=== PATIENT | female | born 1965 | race Caucasian/White ===

== ENCOUNTER 2023-10-15 12:35 | Inpatient (IN) | payer OTHER, SELFPAY ==
[2023-10-15] VITALS (17 sets, daily range): BP systolic 83–126; BP diastolic 59–89
--- NOTE | 2023-10-15 09:59 | ED.GENMED ---
History of Present Illness
General
Chief Complaint: Unresponsive
Source: ambulance crew
Exam Limitations: none
Time Seen by Provider: 10/15/23 09:55
Nursing documentation reviewed up to this point in time: agreed with
History of Present Illness
History of Present Illness:
58-year-old female presents emergency department due to altered mental status. Her neighbor checked on her, and was worried that she was . They began compressions on her, EMS arrived to find her responsive to pain. Vital signs were stable,
they established an IV and transported patient. Patient responds to her name, and is moving all extremities.
Past History
Past History
ED Past Medical History: GERD, Renal failure and Other (Irritable bowel)
ED Past Surgical History: Other (Gastric sleeve)
Review of Systems
Review of Systems
Allergies reviewed?: Yes
All Other Systems: Not applicable
Phy Exam
Physical Exam
Physical Exam:
Physical Exam
General: Arousable
Neck: supple. no meningeal signs. normal posterior pharynx
Heart: s1/s2 regular rate and rhythm, no murmur. equal radial
pulses.
HEENT: Pupils equal round reactive to light, EOMI
Lungs: no acute respiratory distress. clear bilaterally
Abdomen: normal bowel sounds. not tender. no CVAT
Neuro: Drowsy, but arousable. no focal neurological deficits cranial nerves II through XII intact
Skin: no rash
Psychiatric: Not cooperative, drowsy
Extremities: no edema. no calf tenderness. negative homans. good distal pulses
Course
Orders/Labs/Results
Orders:
Orders
10/15/23 09:56
EKG- Treatment ONCE
10/15/23 09:57
Electrocardiogram (*1) Urgent
Reason for Study: Fatigue / Weakness
CT Head W/o Iv Contrast Urgent
Comment:
Reason For Exam: altered mental status
10/15/23 09:58
Cardiac Monitoring- Treatment ONCE
Straight cath- Treatment ONCE
10/15/23 10:00
Lactic Acid Q4H
Comment: CANCEL 2nd LACTIC ACID IF 1st LACTIC ACID IS LESS THAN 2
10/15/23 10:10
Alcohol Urgent
Complete Blood Count/With Diff Urgent
Comprehensive Metabolic Panel Urgent
Lactic Acid Q4H
Comment: CANCEL 2nd LACTIC ACID IF 1st LACTIC ACID IS LESS THAN 2
Salicylate Urgent
Troponin I Urgent
Tylenol [Acetaminophen] Urgent
Dextrose 50%-Water [Dextrose 50% Syringe] 25 grams .ROUTE .STK-MED ONE
Dextrose 50%-Water [Dextrose 50% Syringe] 25 grams IV NOW STA
10/15/23 10:15
0.9% Sodium Chloride 1000 ml [Nss] 1,000 ml IV BOLUS
10/15/23 10:17
Urine Drug Abuse Screen Urgent
Date Specimen was Collected: 10/15/23
Time Specimen was Collected: 10:14
10/15/23 10:21
Urinalysis Reflex To Culture Urgent
Date Specimen was Collected: 10/15/23
Time Specimen was Collected: 10:20
10/15/23 10:22
Urine Drug Abuse Screen Urgent
Date Specimen was Collected: 10/15/23
Time Specimen was Collected: 10:20
10/15/23 10:41
Bedside Glucose- Treatment ONCE
Abnormal Lab Results
10/15/23 10/15/23
10:09 10:10
WBC 4.3 L 10^3/uL
(4.8-10.8)
MCH 32.1 H pg
(27.0-31.0)
BUN 22 H mg/dl
(7-17)
AST 37 H U/L
(14-36)
Salicylates < 1.0 L mg/dl
(2.0-20.0)
Acetaminophen < 10 L ug/ml
(10-30)
POC Glucose 59 L mg/dl
(70-99)
10/15/23 10:10
10/15/23 10:10
Vital Signs
Initial and Last Documented VS:
Initial Vital Signs
Temp Pulse Resp BP Pulse Ox
97.0 F 91 18 126/86 94
10/15/23 10:04 10/15/23 10:04 10/15/23 10:04 10/15/23 10:04 10/15/23 10:04
Last Documented Vital Signs
Temp Pulse Resp BP Pulse Ox
97.0 F 82 13 96/67 98
10/15/23 10:04 10/15/23 10:23 10/15/23 10:23 10/15/23 10:23 10/15/23 10:23
MDM/Problems Addressed
Differential Diagnosis Includes:
CVA, intracranial hemorrhage, drug overdose, hypoglycemic episode
MDM/Problems Addressed:
58-year-old female with altered mental status, unclear etiology. Stable airway. Admit to hospitalist, ICU for further evaluation.
*Radiology
Radiology exam reviewed: preliminary read by ED provider (CT head no acute findings)
*Pulse Oximetry
Patient hypoxic: no
*EKG
Interpreted by ED Provider?: Yes
EKG Intrepretation Date: 10/15/23
EKG Intrepretation Time: 10:09
Interpretation: normal
Comparison EKG: no changes
Heart Rate: 84
Rate: normal
Rhythm: sinus
Kennedy: normal axis
Interval: normal interval
QRS Pattern: normal QRS
Ischemia: no ischemia
*Auto Mechanics Teacher Interpretation
Rate: normal
Interpretation: normal
Heart Rate: 82
Rhythm: sinus
*Critical Care Note
Total Time (30-74mins, 75-104mins- exclusive of procedures): 30
comment:
Critical care statement: A total of 30 minutes of critical care time was provided for this patient. This includes management of unstable vital signs, evaluation of the patient at bedside, reviewing the patient's pertinent medical records, discussion
with consultants, review of old EKGs and review of pertinent medical records. This time with separate from time utilized to perform the aforementioned documented procedures
Patient Management
Social determinants of health affecting care: Living situation
Discussion with other providers: Hospitalist and Windows System Admin (Neurology)
Escalation/DeEscalation of care consider admission/obs:
Admit indicated
ED Attending Note
-
Portions of this chart may have been created with voice recognition software.� Occasional wrong word or��sound alike� substitutions may have occurred due to the inherent limitations of voice recognition software.
Discharge Plan
Departure
Patient Disposition: Admit
Date of Disposition: 10/15/23
Time of Disposition: 10:45
Admit to: ICU
Presentation/result/management discussed w/ accepting MD/DO: Hospitalist
Patient with high blood pressure during this ER visit?: No
Condition: Serious
Discharge Problem:
Acute alteration in mental status
Prescriptions:
No Action
multivitamin with iron Tablet
1 tab PO DAILY
rosuvastatin [Crestor] 10 mg Tablet
10 mg PO QPM
calcium citrate-vitamin D3 [Citracal plus D] 315 mg-5 mcg (200 unit) Tablet
2 tab PO DAILY
Gemtesa 75 mg Tablet
75 mg PO DAILY
Wegovy 2.4 mg/0.75 mL Pen Injector
2.4 mg SC TH
gabapentin 600 mg Tablet
600 mg PO HS
aspirin [Aspir-81] 81 mg Tablet,Delayed Release (Dr/Ec)
81 mg PO QPM
acetaminophen 500 mg Tablet
1,000 mg PO Q6H PRN (Reason: pain)
amitriptyline 25 mg Tablet
25 mg PO HS
ibuprofen 200 mg Tablet
400 - 600 mg PO Q6H PRN (Reason: Pain)
bisacodyl [Dulcolax (bisacodyl)] 5 mg Tablet,Delayed Release (Dr/Ec)
5 - 20 mg PO PRN PRN (Reason: constipation)
polyethylene glycol 3350 [Miralax] 17 gram/dose Powder
4 g PO PRN PRN (Reason: Constipation)
melatonin 5 mg Tablet
5 mg PO HS
Fish Oil 1,280 MG capsule
1,280 mg PO DAILY
diazepam 10 MG suppository
10 mg ME PRN PRN (Reason: constipation)
Referrals:
Miracle Betts DO [Family Provider] -
Interventions
Interventions:
*Risk Screen - Suicide Last Done: 10/15/23 09:58
*General Assessment Last Done: 10/15/23 09:58
*Neglect/Abuse Screening Last Done: 10/15/23 09:58
*ED COVID-19 Vaccine History Last Done: 10/15/23 09:58
ED- Neurological Assessment Last Done: 10/15/23 09:58
Discharge Date and Time
Print Language: INDONESIAN
[2023-10-15] MEDS: DEXTROSE 50% SYRINGE 25 GRAMS IV (10:13)
[2023-10-15 10:15] LABS: Glucose - Point of Care 59 mg/dl (70-99)
[2023-10-15] MEDS: NSS 1000 IV ×2 (10:19→12:41)
[2023-10-15 10:27] LABS: % Basophils 0.2 % (0-2); % Eosinophils 2.8 % (0-6); % Lymphocytes 28.4 % (20.5-51.1); % Monocytes 7.9 % (1.7-9.3); % Neutrophils 60.7 % (42.2-75.2); Absolute Eosinophils 0.1 10^3/uL (0-0.7); Absolute Lymphocytes 1.2 10^3/uL (1.2-3.4); Absolute Monocytes 0.3 10^3/uL (0.1-0.6); Absolute Neutrophils 2.6 10^3/uL (1.4-6.5); Hematocrit 44.7 % (37.0-47.0); Hemoglobin 15.2 g/dL (12.0-16.0); Mean Corpuscular Hgb 32.1 pg (27.0-31.0); Mean Corpuscular Volume 94.3 fL (81.0-99.0); Mean Platelet Volume 9.7 fL (7.4-10.4); Nucleated Red Blood Cells % 0 %; Platelet Count 167 10^3/uL (130-400); Red Blood Cell Count 4.74 10^6/uL (4.20-5.40); Red Cell Dist. Width 11.9 % (11.5-14.5); White Blood Cell Count 4.3 10^3/uL (4.8-10.8)
[2023-10-15 10:36] LABS: Lactic Acid 0.8 mmol/L (0.7-2.0)
[2023-10-15 10:37] LABS: ALT (SGPT) 35 U/L (0-35); AST (SGOT) 37 U/L (14-36); Acetaminophen < 10 ug/ml (10-30); Albumin 4.4 g/dl (3.5-5.0); Alkaline Phosphatase 58 U/L (38-126); Blood Urea Nitrogen 22 mg/dl (7-17); Calcium 9.5 mg/dl (8.4-10.2); Carbon Dioxide 30 mmol/L (22-30); Chloride 101 mmol/L (98-107); Glucose 82 mg/dl (70-99); Potassium 4.8 mmol/L (3.5-5.1); Salicylate < 1.0 mg/dl (2.0-20.0); Sodium 141 mmol/L (135-145); Total Bilirubin 0.6 mg/dl (0.2-1.3); Total Protein 6.5 g/dl (6.3-8.2); eGFR > 60.00
[2023-10-15 10:38] LABS: Alcohol None Detected
[2023-10-15 10:47] LABS: Glucose - Point of Care 134 mg/dl (70-99)
[2023-10-15 10:48] LABS: Troponin I < 0.012 ng/ml
[2023-10-15 10:54] LABS: Urine Albumin Negative (Neg - Trace); Urine Bilirubin Negative (Negative); Urine Character Clear (Clear); Urine Color Yellow; Urine Glucose Negative (Negative); Urine Ketone Negative (Negative); Urine Leukocyte Negative (Negative); Urine Nitrite Negative (Negative); Urine Occult Blood Negative (Negative); Urine Urobilinogen Negative (Neg - 1+)
[2023-10-15 11:21] LABS: Amphetamines Negative (Negative); Barbiturates Negative (Negative); Benzodiazepines Positive (Negative); Buprenorphine Negative (Negative); Cocaine Negative (Negative); Marijuana Negative (Negative); Methadone Negative (Negative); Methamphetamines Negative (Negative); Opiates Negative (Negative); Phencyclidine Negative (Negative)
[2023-10-15 11:22] LABS: Tricyclic Antidepressants Positive (Negative)
[2023-10-15 12:09] LABS: Fentanyl, Urine Negative (Negative)
--- NOTE | 2023-10-15 13:52 | W.PN.UPDATE ---
Update Note
Progress Note Update
I personally performed a history and physical exam of the patient and discussed management with the resident. I reviewed the resident's note and agree with the documented findings and plan of care HPI/CC.
58F with PMH of obesity s/p gastric bypass, depression/anxiety, hyperlipidemia, neuropathy, overactive bladder, H/o PE/DVT was brought into ER by EMS after patient found unresponsive at home. Patient spouse called patient did not get a response.
Neighbor checked on patient and found unresponsive. EMS reported patient glucose was 58. Patient was brought into ER and initial workup was negative including no major abnormality on CBC/BMP/urine drug screen/CT head. During my visit patient
remains unresponsive and cannot open eye on painful stimuli. History gathered from patient spouse and daughter at bedside.
Per patient spouse there is social stress with patient mood issues. Patient has been depressed and has been at times fighting with family. Patient goes through episodes of binge drinking. No reported suicidal ideation or history of attempt.
Patient family is in touch with psychotherapist to help patient through the process.
Patient have history of gastric bypass and no reported complication. Takes Wejovy and no reported episodes of previous Hypoglycemia. Patient does not have history of any head trauma/seizures in the past. No history of alcohol withdrawal.
HEENT: bilateral equal pupil
NECK: Supple. No JVD.
RESPIRATORY: Lungs clear to auscultation.
CVS: S1, S2 normal. RRR. No murmur, rub or gallop.
ABDOMEN: Soft, No distension. BS+/normal.
EXTREMITIES: No peripheral cyanosis or edema.
ENTERER: obtunded, some opening eyes to painful stimuli
1. Unresponsive
Acute toxic metabolic encephalopathy
-found un-responsive at home.
-CT head negative for acute abnormality
-Urine drug screen positive for benzo/TCA, patient's home medications
-Alcohol/salicylate/tylenol negative as well
-Reported Hypoglycemia of ~ 55 by EMS staff and may explain encephalopathy, but surprisingly not improved with glucose normalization, nonetheless maintained on IV D5/LR. Patient can have further episode of hypoglycemia and continue checking for q6h
while unresponsive,
-History of alcohol use another potential differential of seizure/postictal state remains possibility. Neuro evaluation requested
-Check VBG to r./o Co2 narcosis
-Patient also reported history of depression. Asked family to bring in medication bottles to rule out any intentional overdose of prescription medication. Per spouse patient phone was showing cultures of gabapentin side effect.
-Monitor patient in IMU level.
2. Hypoglycemia
-Patient takes Wejovy every .
-Also history of alcohol use and poor oral intake likely contributing to ongoing Hypoglycemia
-Maintain on D5 LR
-With alcohol use history give 4 doses of IV thiamine
3. Depression/Anxiety
-Patient on Xanax 0.5 mg/d - PDMP reviewed
-Also on amitriptyline
4. HLD
-Hold PO statin
Overactive bladder
History of PE/DVT
DVT PPX - lovenox
Full code
Total time spent : 80 mins
I personally saw and examined the patient.
I have reviewed all diagnostic interpretations and treatment plans as written.
Time includes patient management by me, time spent at the patients bedside, time to review lab and imaging results, discussing patient care, documentation in the medical record, and time spent with the family or caregiver and discussing care plan
with RN/Consultants.
[2023-10-15 14:14] LABS: Glucose - Point of Care 47 mg/dl (70-99)
[2023-10-15] MEDS: DEXTROSE 50% SYRINGE 12.5 GRAMS IV (14:18)
[2023-10-15] MEDS: D5LR 1000 IV ×2 (14:25→23:29)
[2023-10-15 14:44] LABS: Glucose - Point of Care 100 mg/dl (70-99)
--- NOTE | 2023-10-15 14:45 | PTCARENOTE ---
[facility] SR on tele BP 98/70 100% on 2L NC- barely responsive- palpable bladder and tender- bladder scanned 1147, accu check 47- TT Dr. Ramirez- 1/2 amp D50 given and Sesay placed- Dr. Ramirez here -
IVF D5LR initiated at 100ml/hr.
Repeat accu check 100 will follow protocol.
Arousable now mumbling words, following some simple commands but unable to answer most questions .
[2023-10-15 15:22] LABS: Creatine Phosphokinase 58 U/L (30-135)
[2023-10-15 17:04] LABS: Glucose - Point of Care 75 mg/dl (70-99)
[2023-10-15 17:17] LABS: Venous Blood Gas B.E. 0.8 mmol/L (-4 to +4); Venous Blood Gas HCO3 28.9 mmol/L (22-27); Venous Blood Gas O2 Sat % 91.6 %; Venous Blood Gas pCO2 60 mmHg (35-48); Venous Blood Gas pH 7.29 (7.32-7.43); Venous Blood Gas pO2 64 mmHg (30-50)
[2023-10-15] MEDS: THIAMINE INJECTION 200 MG IV (17:38)
[2023-10-15] MEDS: LOVENOX 40 MG SC (17:38)
[2023-10-15 18:08] LABS: Free T4 0.91 ng/dl (0.78-2.19)
[2023-10-15 18:22] LABS: TSH 0.51 uIU/ml (0.47-4.68)
--- NOTE | 2023-10-15 19:41 | PTCARENOTE ---
Mostly sleeping, awoke briefly this pm and was upset that she cannot have a drink of something- mouth swabs provided then went right back to sleep. Spouse at bedside. Admission completed.
[2023-10-15 20:07] LABS: Glucose - Point of Care 71 mg/dl (70-99)
--- NOTE | 2023-10-15 20:36 | HPS.HSE ---
Family Physician
-
Family Physician: Miracle Betts
Chief Complaint
-
Altered Mental status
History of Present Illness
A 58 year old female with PMH of depression, hyperlipidemia, pulmonary embolism was brought to the ER by EMS after patient did not respond to the husbands calls/text and he then requested neighbor to check on patient. EMS was called and patient was
admitted into the ER. Her blood glucose level was 58 at the time EMS was evaluating her. Patient is unresponsive and cannot open eye on painful stimuli. Reported a previous episode of sudden altered mental status following an episode of pulmonary
embolism 10 years ago. No abnormalities seen on labs, CT head- shows no intracranial abnormalities, and toxicology screen is positive for benzos and tricyclic antidepressants but patient has a prescription for these to treat her depression.
states that when she goes into a depressive episode, she binge drinks then fights with the family and the last episode was 4 weeks ago. the last message on her phone was 'side effects of benzos'. No reported suicidal ideation or history of
attempt. pt has no history of alcohol withdraw, head trauma, hypoglycemic episodes, or seizures.
Patient have history of gastric bypass, hysterectomy, and surgery for tennis elbow of the right hand and no reported complication.
Medical History
Past Medical History
Past Medical History: Reports Hypercholesterolemia
Additional Past Medical History:
depression, pulmonary embolism, obesity
Past Surgical History: Reports Other (see note below)
Additional Past Surgical History:
gastric bypass, hystrectomy, and tennis elbow surgery on right arm
Social History
Unable to obtain full social history at this time due to: Patient Non-verbal
Family History
Family History: Not pertinent
Allergies / Home Medications
Allergies reflects when Allergies were last updated in [employer].
Home Medications with original date entered in [employer]
Allergy/Medication List:
Allergies
Allergy/AdvReac Type Severity Reaction Status Date / Time
Sulfa (Sulfonamide Allergy fever Verified 04/07/22 07:04
Antibiotics)
Home Medications
acetaminophen 500 mg tablet 1,000 mg PO Q6HPRN PRN mild pain 04/02/22
amitriptyline 25 mg tablet 25 mg PO HS depression/pain 04/02/22
aspirin 81 mg tablet,delayed release 81 mg PO QPM Blood Clot Prevention/Tx 04/02/22
bisacodyl 5 mg tablet,delayed release (Dulcolax (bisacodyl)) 5 - 15 mg PO DAILYPRN PRN constipation 04/02/22
calcium citrate 315 mg-vitamin D3 5 mcg (200 unit) tablet 2 tab PO DAILY Supplement 04/02/22
diazepam 20 mg VT DAILYPRN PRN pelvic floor spasms 04/02/22
melatonin 5 mg tablet 5 mg PO HS sleep 04/02/22
omega-3s 360 oj-fzx-gex-fish oil 1,200 mg-D3 1,000 unit capsule (Fish Oil-Vit D3) 1 cap PO DAILY Supplement 04/02/22
semaglutide (weight loss) 2.4 mg/0.75 mL subcutaneous pen injector (Wegovy) 2.4 mg SC TH weight loss 04/02/22
vibegron 75 mg tablet (Gemtesa) 75 mg PO DAILY Urinary Issue 04/02/22
alprazolam 0.5 mg tablet (Xanax) 0.5 mg PO DAILYPRN PRN anxiety 10/15/23
cyclobenzaprine 10 mg tablet 10 mg PO DAILYPRN PRN spasms 10/15/23
gabapentin 100 mg capsule 100 mg PO DAILY@1400 pain 10/15/23
gabapentin 100 mg capsule 200 mg PO DAILY pain 10/15/23
gabapentin 600 mg tablet 600 mg PO HS pain 10/15/23
rosuvastatin 10 mg tablet 10 mg PO DAILY High Cholesterol 10/15/23
therapeutic multivitamin 1 tab PO DAILY Supplement 10/15/23
If medication reconciliation has not been performed, why?: Unresponsive
Review of Systems
-
Unable to obtain full review of systems at this time due to: Patient Non-verbal
Physical Exam
Vital Signs
Vital Signs
Temp Pulse Resp BP Pulse Ox
98.2 F 77 13 95/64 100
10/15/23 19:42 10/15/23 18:00 10/15/23 18:00 10/15/23 18:00 10/15/23 18:00
Physical Exam
General: Well Developed and Well Nourished
Respiratory: Clear
Cardiac: S1/S2 and Regular Rhythm
GI: Soft and Non Distended
Musculoskeletal: No Clubbing, No Cyanosis and No Edema
Skin: Warm and Dry
Neuro: Other (Altered mental status)
Laboratory Results
-
10/15/23 10:10
10/15/23 10:10
Laboratory Results
Lactic Acid 0.8 mmol/L (0.7-2.0) 10/15/23 10:10
Total Bilirubin 0.6 mg/dl (0.2-1.3) 10/15/23 10:10
AST 37 U/L (14-36) H 10/15/23 10:10
ALT 35 U/L (0-35) 10/15/23 10:10
Alkaline Phosphatase 58 U/L (38-126) 10/15/23 10:10
Troponin I < 0.012 ng/ml 10/15/23 10:10
Data Reviewed
-
Lab Data: Labs Reviewed by me and Discussed with Physician
Impression/Plan
-
IMPRESSION:
PLAN:
1. Acute toxic encephalopathy:
- patient is unresponsive to verbal commands and painful stimuli.
- Reported hypoglycemia of 58 by ems ( 82 now) and administered D5/LR IV and make sure to monitor every q6h
-CT head (10/14) shows no intracranial abnormalities
-Neuro evaluation requested for possible seizures
-Check VBG to r./o Co2 narcosis
-Patient has a history of major depressive episodes so asked patients to bring in pill bottle to count how many pills she has been taking.
-Observe patient in the IMU level.
2. Hypoglycemia
-EMS team recorded a blood glucose level of 58 ( 82 now in the ED), so administer D5 IV and monitor every q6h
-This could be due to her heavy alcohol usage which could affect her liver causing it to stop releasing glucose
-Administer 4 doses of IV thiamine to help decrease the potential risk of Wernicke encephalopathy
3. Depression
-Patient on Xanax 0.5 mg/d - PDMP reviewed and amitriptyline
- A possible psych evaluation once patient is responsive
4. HLD
-Hold statins as they can exacerbate hypoglycemia
--- NOTE | 2023-10-15 20:43 | PTCARENOTE ---
Pt is awake, oriented at this time. Most recent blood glucose 71. On assessment, IV is noted to be infiltrated, fluids stopped, IVT notified. Pt denies symptoms of hypoglycemia at this time, but does request water and states that her mouth feels
dry. This RN provided mouth swabs and educated pt. This RN educated pt on need for new IV site to continue IVF as directed. Pt reminded to alert this RN with change in symptoms. Call jaramillo within reach and pt ringing appropriately at this time. Bed
alarm in place for patient safety.
[2023-10-15 21:53] LABS: Glucose - Point of Care 70 mg/dl (70-99)
--- NOTE | 2023-10-15 22:20 | PTCARENOTE ---
Pt very drowsy at this time. BP readings
--- NOTE | 2023-10-15 22:23 | PTCARENOTE ---
Pt very drowsy at this time, but arousable. BP readings under 90 systolic. FOREIGN STUDENT ADVISER TEACHER notified. IVF running through R wrist IV.
[2023-10-16] VITALS (13 sets, daily range): BP systolic 71–109; BP diastolic 41–68
[2023-10-16 00:19] LABS: Glucose - Point of Care 93 mg/dl (70-99)
[2023-10-16] MEDS: NSS 500 IV (02:43)
--- NOTE | 2023-10-16 03:04 | PTCARENOTE ---
BP remains low, now under 80 systolic. Pt repositioned, cuff replaced. 500ml bolus given per ICE CREAM DIPPER order. Pt woke up confused, attempted to get OOB. Pt states that she wants to get OOB to use bathroom. Pt educated that she has a guido catheter in
place and is ordered bedrest at this time. Pt does not verbalize understanding of teaching, but is agreeable to laying down in bed.
[2023-10-16 03:56] LABS: Glucose - Point of Care 76 mg/dl (70-99)
[2023-10-16] MEDS: THIAMINE INJECTION 200 MG IV (04:35)
[2023-10-16 05:12] LABS: Hematocrit 39.2 % (37.0-47.0); Hemoglobin 13.4 g/dL (12.0-16.0); Mean Corp Hgb Conc. 34.2 g/dL (33.0-37.0); Mean Corpuscular Hgb 31.7 pg (27.0-31.0); Mean Corpuscular Volume 92.7 fL (81.0-99.0); Platelet Count 190 10^3/uL (130-400); Red Blood Cell Count 4.23 10^6/uL (4.20-5.40); Red Cell Dist. Width 12.1 % (11.5-14.5); White Blood Cell Count 5.1 10^3/uL (4.8-10.8)
[2023-10-16 05:35] LABS: ALT (SGPT) 25 U/L (0-35); AST (SGOT) 27 U/L (14-36); Alkaline Phosphatase 48 U/L (38-126); Blood Urea Nitrogen 11 mg/dl (7-17); Calcium 9.4 mg/dl (8.4-10.2); Carbon Dioxide 31 mmol/L (22-30); Chloride 108 mmol/L (98-107); Estimated Creatinine Clearance 84 ml/min; Glucose 87 mg/dl (70-99); Potassium 4.1 mmol/L (3.5-5.1); Sodium 146 mmol/L (135-145); Total Bilirubin 0.6 mg/dl (0.2-1.3); Total Protein 6.1 g/dl (6.3-8.2); eGFR > 60.00
[2023-10-16 06:21] LABS: Glucose - Point of Care 70 mg/dl (70-99)
[2023-10-16] MEDS: CRESTOR 10 MG PO (09:11)
--- NOTE | 2023-10-16 09:34 | PTCARENOTE ---
Pt awake and alert, at bedside with pt's prescription bottle of Gabapentin 600mg. Pt reports 'I took 5 of those' (Thursday night). Directions on bottle were: 600mg 1 tab PO HS. Pt reports she takes Gabapentin for anxiety/depression.
Attending notified. N/O to D/C IVG, bedrest and guido, N/O regular diet and psych consult. Guido removed 1,300ml clear yellow urine. pt tolerated well. no c/o pain. CB in reach
--- NOTE | 2023-10-16 11:32 | CON.MD ---
Consultation - Medical
-
patient seen chart reviewed. at bedside. the patient is a 58 year old woman who was admitted after being found unresponsive. she had taken five gabapentin 600 mg in an effort to sleep.s he adamantly denies this was a suicide attempt. she
has had a hard time sleeping for many years. she also uses melatonin at hs and takes amitryptyline prescribed not for sleep specifically but for her overactive bladder and for depression. she has been on and off depressed for over 25 years. she has
taken several antidepressants lexapro and zoloft as well as seroquel as an addon without she feels great resolution. the amitryptyline (elavil) has been somewhat helpful but also contributes to dry mouth and severe constipation. patient retired from
her job as at and t [employer] in 2018. this caused her to fall back in social outlets/exercise etc and also she took on a number of stressors including managing the estate of an 80 yr old aunt at her father's behest remodeling her home completely
with a contractor who caused a lot of grief for her and her family attending [place] medical meetings with her father who is having neurological issues. . was see for chest pain in the past few months which also rattled her and her d is marrying
someone she has deep misgivings about next spring. patient also admits when she gets stressed she binge drinks every few weeks or so. she also can struggle with angry outbursts which h says are largely directed at him. patient has a therapist and a
php engineer who manages her meds. she has had four crnps in recent years bc people leave their practice and she is left to find another on her own. she feels no one really has gotten to know her. patient is depressed now but NOT suicidal. she has never
been suicidal. she has never suffered psychosis. i don't hear a hx which would suggest bipolar. she struggles to sleep. appetite is good. she had gastric bypass and has lost 80 lbs. she does not enjoy much right now and energy level not great. pt
also stressed by an number of medical issues see below
past psych hx no hospital stays see above has a therapist and currently php engineer current meds elavil 25 mg tried to inc it but side effects limited this. she had actually been on doxepin for dep but when urologist suggested elavil for bladder the
psych went with elavil for both. see above she also took seroquel as an addon but not helpful
medical hx see above hld thrombophila w hx PE DVT he dayna metabolic syndrome obesity with recent weight loss neuropathy overactive bladder hx hysterectomy suffered cracked rib recently in a fall severe tennis elbow requiring surgery CAT
brain w mild atrophy no acute findings. ecg nl constipation is a MAJOR issue for patient. she takes several laxatives
family hx mom w anx depression etoh now sober sister etoh
substance abuse medical mj did not find it helpful for anxiety etoh see above d enies any hx etoh wd
social resides w h two kids ages 27 and 24 retired see above has + friendships no hobbies currently no hx trauma two sisters one is supportive of her
mse alert ox3 x cooperative pleasant. speech and thought process nl mood is depressed affect ok no si no psychosis intelligence above aver insight judgment fair
dx unspecified depression r.o etoh abuse disorder
plan i did not make any changes in her medication which i feel should be left to out patient we did discuss a number of possibilities for medication trials. also discussed major issue of constipation. elavil likely contributing. this should be
addressed w 's treating her. discussed sleep and possibilities including cbt for sleep which she can access on line. discussed ways to minimize and manage stress. she should continue in psychotherapy. suggested php and told them how to access. i
called [facility] to alert them she may be calling. i do not feel this was an overdose attempt and while no one can predict the future i do not see her as an imminent suicide risk. she was advised that alcohol will only increase mood lability
and if she cannot stop she may need to consider at least out pt rehab. psych will sign off please call us if we need to return.
--- NOTE | 2023-10-16 11:51 | CM ---
Patient with Dx episode unresponsiveness at home, TME, hypoglycemia, depression/anxiety. Seen by Psych.
Met with patient who resides with her in a 2 story house with 1 ISMAEL.
The patient has been independent in ADLs and ambulation.
She is retired, active and drives.
DME - [facility]
Prior remote VN after childbirth.
PCP - Miracle Betts
Pharmacy - [facility] [place]
Spoke with Dr Galvan; she referred patient to [facility] for an outpatient PHP/partial hospitalization program.
No CM d/c planning needs identified.
Plan home.
[2023-10-16 11:55] LABS: Glucose - Point of Care 84 mg/dl (70-99)
--- NOTE | 2023-10-16 16:25 | W.PN.HOSP.TC ---
Today's Communication/Plan
-
discussed alcohol cessation
Told her to f/u with her psychiatrist outpatient
repeat bmp again and follow up with pcp
Assessment / Plan
Assessment / Plan
1. Acute toxic encephalopathy:
- She is awake and alert in the morning (10/15)
- Reported hypoglycemia of 58 by ems ( 87 now on 10/15) and administered D5/LR IV and make sure to monitor every q6h
-CT head (10/14) shows no intracranial abnormalities
-Neuro evaluation requested for possible seizures
-VBG (10/15) shows Primary respiratory acidosis (chronic) w/ secondary metabolic acidosis
2. Hypernatremia:
- serum Na level on 10/15 is 146
- Repeat a BMP again outpatient
- F/u with her pcp
3. Hypoglycemia
-EMS team recorded a blood glucose level of 58 ( 87 now in the ED)
-Administer 4 doses of IV thiamine to help decrease the potential risk of Wernicke encephalopathy (10/14)
- Hold off on the wegovy for 1 week as it can exacerbate hypoglycemia (10/15)
- Discussed the importance of alcohol cessation as it can precipitate hypoglycemia
- Discussed the importance of having balanced meals throughout the day and eating sugary food items if patient feels
like she is about to pass out.
4. Depression
-Patient on Xanax 0.5 mg/d - PDMP reviewed and amitriptyline
- Pysch evaluation (10/15)- no changes to medication, f/u with pcp, does not think it was suicide attempt, discussed stress management methods
5. HLD
-Hold statins as they can exacerbate hypoglycemia
Anticipated Discharge: Today
Subjective/Interval History
-
Date of Service: October 16, 2023
Pt has no acute complaints. No overnight events. She is awake and alert. Claims she took [id number] gabapentin to sleep and it was not a suicide attempt.
Objective Data
-
Labs:
Laboratory Results
10/16/23
04:57
WBC 5.1
Hgb 13.4
Hct 39.2
Plt Count 190
Sodium 146 H
Potassium 4.1
Chloride 108 H
Carbon Dioxide 31 H
BUN 11
Creatinine 0.7
Glucose 87
Calcium 9.4
Total Bilirubin 0.6
AST 27
ALT 25
Alkaline Phosphatase 48
Vital Signs:
Vital Signs
Temp Pulse Resp BP Pulse Ox
98.2 F 81 20 92/64 99
10/16/23 12:02 10/16/23 06:07 10/16/23 06:07 10/16/23 06:07 10/16/23 08:06
I&O
10/15/23 10/16/23 10/17/23
06:59 06:59 06:59
Intake Total 2100 / 2100 100 / 100
Output Total 1650 / 1650 1300 / 1300
Balance 450 / 450 -1200 / -1200
Review of Systems
-
History Source: Patient
All other systems: Reviewed and negative
Physical Exam
-
General: Well Developed and Well Nourished
Respiratory: Clear to Auscultation
Cardiac: Regular Rhythm and S1/S2
GI: Soft, Nontender and Nondistended
Skin: Warm and Dry
Neuro: Awake, Alert and Oriented
Data Reviewed
-
Labs: Labs Reviewed by me and Discussed with Physician
--- NOTE | 2023-10-16 16:26 | W.PN.UPDATE ---
Update Note
Progress Note Update
I saw and evaluated the patient. I reviewed the resident�s note and agree with findings and plan as documented in the resident�s note.
Patient awake and oriented x 3 during the morning. No reported issues overnight.
Able to tolerate diet without any problem
Getting around without much help from assistance.
1. Acute toxic encephalopathy - resolved
Intentional overdose of gabapentin
-found un-responsive at home.
-CT head negative for acute abnormality
-Urine drug screen positive for benzo/TCA, patient's home medications
-Alcohol/salicylate/tylenol negative as well
-Patient received recurrent Hypoglycemia and likely explaining encephalopathy with added overdosing on gabapentin explain patient's presentation
-Psychiatry evaluated patient and has been cleared to follow-up on outpatient [facility].
2. Persistent Hypoglycemia
-Patient takes Wejovy every .
-Also history of alcohol use and poor oral intake likely contributing to ongoing Hypoglycemia
-Blood glucose has been stabilized off D5LR. Patient have appropriate oral intake
3. Depression/Anxiety
-Patient on Xanax 0.5 mg/d - PDMP reviewed
-Also on amitriptyline
4. HLD
-Hold PO statin
Overactive bladder
History of PE/DVT
DVT PPX - lovenox
Full code
More than 30 minutes spent in discharge including
Final examination of the patient
Summarizing hospital stay
Instructions for continuing care to all relevant caregivers
Preparation of discharge records, prescriptions, and referral forms
Total time spent (in minutes): 38 mins
--- NOTE | 2023-10-16 16:46 | W.DCSUMMARY ---
Discharge Summary
Discharge Data
Date of Admission: 10/15/23
Date of Discharge: 10/16/23
-
Pending Results: No
Hospital Course
A 58 year old female with a past medical history of depression, hyperlipidemia, PE was brought to the ER by EMS after patient did not respond to the husbands calls/texts and he then requested neighbor to check on patient who was found responsive.
EMS was called and patient admitted into the ER. Blood glucose level was 58 when EMS evaluated patient. Patient is unresponsive and does not open eye to painful stimulation. In the ER, No abnormalities seen on labs, CT head normal, and toxicology
screen is positive for benzo and tricyclic depressants but patient is using these to treat her depression. She has a history of binge drinking with aggression and last episode of drinking was 4 weeks ago. No reported suicidal ideation or history of
attempt. No history of alcohol withdrawl, head trauma, seizures, or hypoglycemic episodes. Past medical history of gastric bypass, hystrectomy, surgery for tennis elbow of right hand. Started on d5w IV and monitored every 6 hours. Administered 4
doses of thiamine to help decrease possibility of Wernicke encephalopathy, statins are held as they can further precipitate hypoglycemia. on 10/15 she is awake, alert, oriented. She has stable vitals and is afebrile. Serum sodium shows a level of 146,
repeat bmp and f/u with pcp. psychiatry consulted and are ok with her current discharge medication regime, do no think this was suicide attempt. counselled patient on alcohol cessation. told to follow up with her physiatric outpatient and her pcp as
well to monitor her labs. told to hold off on wegovy for a week as it may exacerbate hypoglycemia.
Discharge Plan
-
Patient Disposition: Home (Routine Discharge)
Discharge Diagnosis/Procedures: Unresponsive, Overdose of gabapentin
Condition: Fair
Diet: Regular
Activity: As tolerated
Driving Restrictions: No driving for 24 hours
Bathing Restrictions: OK to Shower
Referrals:
Miracle Betts DO [Family Provider] - in one week
Prescriptions:
Continued
calcium citrate-vitamin D3 315 mg-5 mcg (200 unit) Tablet
2 tab PO DAILY
Gemtesa 75 mg Tablet
75 mg PO DAILY
Wegovy 2.4 mg/0.75 mL Pen Injector
2.4 mg SC TH
aspirin 81 mg Tablet,Delayed Release (Dr/Ec)
81 mg PO QPM
acetaminophen 500 mg Tablet
1,000 mg PO Q6HPRN PRN (Reason: mild pain)
amitriptyline 25 mg Tablet
25 mg PO HS
bisacodyl [Dulcolax (bisacodyl)] 5 mg Tablet,Delayed Release (Dr/Ec)
5 - 15 mg PO DAILYPRN PRN (Reason: constipation)
melatonin 5 mg Tablet
5 mg PO HS
[id number] oil-D3 [Fish Oil-Vit D3] 360 mg-1,200 mg -1,000 unit Capsule
1 cap PO DAILY
diazepam 20 MG suppository
20 mg WV DAILYPRN PRN (Reason: pelvic floor spasms )
cyclobenzaprine 10 mg Tablet
10 mg PO DAILYPRN PRN (Reason: spasms)
gabapentin 600 mg Tablet
600 mg PO HS
therapeutic multivitamin Tablet
1 tab PO DAILY
alprazolam [Xanax] 0.5 mg Tablet
0.5 mg PO DAILYPRN PRN (Reason: anxiety)
gabapentin 100 mg Capsule
200 mg PO DAILY
gabapentin 100 mg Capsule
100 mg PO DAILY@1400
rosuvastatin 10 mg Tablet
10 mg PO DAILY
Discharge Orders:
Discharge Patient (As Directed); Ordered 10/16/23
Ordered By: Tommy Ramirez
Discharge Date and Time
Discharge Date/Time: 10/16/23 13:52
Print Language: EMIRATI
== END 2023-10-16 13:52 | disposition home or self-care (01) | DRG 917 ==
LOC: IMU 12:35
PROVIDERS: ADMITTING PHYSICIAN Hospitalist; CONSULT PHYSICIAN Psychiatry & Neurology Psychiatry; EMERGENCY PHYSICIAN Emergency Medicine; FAMILY PHYSICIAN Family Medicine
DX: T42.6X1A Poisoning by other antiepileptic and sedative-hypnotic drugs, accidental (unintentional), initial encounter (principal); G92.8 Other toxic encephalopathy; F32.A Depression, unspecified; F10.10 Alcohol abuse, uncomplicated; E16.2 Hypoglycemia, unspecified; E78.00 Pure hypercholesterolemia, unspecified; K21.9 Gastro-esophageal reflux disease without esophagitis; K58.9 Irritable bowel syndrome, unspecified; Z79.899 Other long term (current) drug therapy; Z90.710 Acquired absence of both cervix and uterus; Z86.711 Personal history of pulmonary embolism; Z98.84 Bariatric surgery status
CPT/HCPCS: 51701; 70450; 80053; 80143; 80179; 80306; 80307; 81003; 82077; 82550; 82805; 82962; 83605; 84439; 84443; 84484; 85025; 85027; 93005; 96361; 96374; 99291

== ENCOUNTER → 2024-12-21 12:53 | Outpatient (REF) | payer OTHER, SELFPAY | LOC: RAD 12:53 | PROVIDERS: ATTENDING PHYSICIAN Internal Medicine; FAMILY PHYSICIAN Family Medicine | DX: M79.604 Pain in right leg (principal); M79.605 Pain in left leg; E78.00 Pure hypercholesterolemia, unspecified; E78.1 Pure hyperglyceridemia | CPT/HCPCS: 93922; 93925 ==

== ENCOUNTER → 2024-12-29 14:58 | Outpatient (REF) | payer OTHER, SELFPAY | LOC: HWRCS 14:58 | PROVIDERS: ATTENDING PHYSICIAN Internal Medicine; FAMILY PHYSICIAN Family Medicine | DX: E78.00 Pure hypercholesterolemia, unspecified (principal); M79.604 Pain in right leg; M79.605 Pain in left leg | CPT/HCPCS: 93306 ==

== ENCOUNTER → 2025-01-26 07:47 | Outpatient (REF) | payer OTHER, SELFPAY | LOC: HWEVLT 07:47 | PROVIDERS: ATTENDING PHYSICIAN Radiology Vascular & Interventional Radiology | DX: I83.891 Varicose veins of right lower extremity with other complications (principal) | CPT/HCPCS: 93970 ==